=== PATIENT | female | born 1950 | race Caucasian/White ===

== ENCOUNTER 2016-11-20 11:36 | Emergency (ER) | payer MEDICARE ==
[2016-11-20 11:36] VITALS: BMI 25.9
[2016-11-20 11:41] VITALS: TEMP 98.3
--- NOTE | 2016-11-20 12:13 | C.PDOC ---
History Of Present Illness 66 yr old female with PMHx of Hyperlipidemia, presents to the ER with complaints of left sided chest pain for the past 2 days. Reports took 1 baby Aspirin today. Patient states initially it was intermittent but now it has been constant and today has been occasionally radiating down the left arm. Patient describes the pain as tightness sensation, associated with mild SOB. Patient denies fever, cough, nausea, vomiting, abdominal pain, headache, history of CAD , HTN, diabetes or smoking. Time Seen by Provider: 11/20/16 11:52 Chief Complaint (Nursing): Chest Pain History Per: Patient History/Exam Limitations: no limitations Onset/Duration Of Symptoms: Days (2 days) Current Symptoms Are (Timing): Still Present Quality: Tightness Associated Symptoms: Other (Mild SOB) Past Medical History Reviewed: Historical Data, Nursing Documentation, Vital Signs Vital Signs: Last Vital Signs Temp 98.3 F 11/20/16 14:31 Pulse 64 11/20/16 15:46 Resp 16 11/20/16 15:46 BP 119/61 11/20/16 15:46 Pulse Ox 100 11/20/16 16:14 - Medical History PMH: Diverticulitis, HTN, Hypercholesterolemia - [facility] Procedures COLOSTOMY NOS (08/27/14) ENDOSC LG BOWEL THROUGH STOMA (12/03/14) LAPAROSCOPY (08/27/14) LG BOWEL STOMA CLOSURE (01/04/15) OPEN AND OTHER SIGMOIDECTOMY (08/27/14) OTHER SKIN & SUBQ I D (01/01/15) PERITONEAL LAVAGE (08/27/14) SUPPLEMENT ABDOMINAL WALL WITH SYNTH SUB, OPEN APPROACH (11/30/15) Family History: States: No Known Family Hx - Social History Hx Tobacco Use: No Hx Alcohol Use: No Hx Substance Use: No - Immunization History Hx Tetanus Toxoid Vaccination: Yes Hx Influenza Vaccination: Yes Hx Pneumococcal Vaccination: No Review Of Systems Except As Marked, All Systems Reviewed And Found Negative. Constitutional: Negative for: Fever Cardiovascular: Positive for: Chest Pain (Left ) Respiratory: Positive for: Shortness of Breath (Mild) Gastrointestinal: Negative for: Nausea, Vomiting, Abdominal Pain Neurological: Negative for: Headache Physical Exam - Physical Exam Appears: Non-toxic, In Acute Distress (Mild pain ), Other ((+) Speaking in full sentences. ) Skin: Warm, Dry, No Rash Head: Atraumatic, Normacephalic Oral Mucosa: Moist Chest: Symmetrical, No Tenderness Cardiovascular: Rhythm Regular, No Murmur Respiratory: Normal Breath Sounds, No Rales, No Rhonchi, No Wheezing Gastrointestinal/Abdominal: Normal Exam, Soft, No Tenderness, No Guarding, No Rebound Extremity: Normal ROM, No Calf Tenderness, No Swelling Neurological/Psych: Oriented x3, Normal Speech, Normal Motor ED Course And Treatment - Laboratory Results Result Diagrams: 11/20/16 12:09 11/20/16 12:09 ECG: Interpreted By Me, Viewed By Me ECG Rhythm: Sinus Rhythm ECG Interpretation: Normal Rate From EC (BPM) O2 Sat by Pulse Oximetry: 100 (RA) Pulse Ox Interpretation: Normal - Radiology CXR: Interpreted by Me - CT Scan/US CT ABD/PELVIS Other Rad Studies (CT/US): Read By Radiologist, Radiology Report Reviewed CT/US Interpretation: Accession No. : [id number]. Patient Name / ID : BARBIE COWAN / [id number]. Exam Date : 11/20/2016 12:02:43 ( Approved ) . Study Comment : Sex / Age : F / 54Y. Creator : Lion Byers MD. Dictator : Lion Byers MD. Assistant Loan Processor : Patient Financial Counselor : Lion Byers MD. Approver2 : Report Date : 11/20/2016 12:52:10. My Comment : . CT abdomen and pelvis. History: Right flank pain. Comparison: CT scan dated 05/18/2014. Technique: Multiple contiguous axial images were performed through the abdomen and pelvis without intravenous contrast. Subsequently, sagittal and coronal reformatted images were obtained. This CT exam was performed using one or more of the following dose reduction techniques: Automated exposure control, adjustment of the mA and/or kV according to patient size, and/or use of iterative reconstruction technique. Findings: Scattered atelectasis within the visualized lung landrum. No pleural or pericardial effusion. Fatty infiltration of the liver. Prior cholecystectomy. Spleen is preserved. Adrenal glands are preserved. Pancreas is preserved. Small hiatal hernia. Right kidney: Mild atrophy. Again identified is a prominent upper right renal staghorn calculus measuring up to 2.2 x 1.5 x 2.7 centimeters. Mild fullness versus mild hydronephrosis of the right renal collecting system and ureter. At the level of the distal right ureter there is a questionable 1 millimeter punctate radiopaque focus which may represent a small calculus best seen on series 3, image 145. Left Kidney: No calculi or hydronephrosis. Urinary bladder is preserved. Heterogeneous uterus and bilateral adnexa. Evaluation of the lower abdominal bowel demonstrates relative underdistention of the colon. Appendix not well visualized on this noncontrast study. If there is concern for appendiceal pathology, correlation with a contrast-enhanced scan may be helpful. Few shotty periaortic and mesenteric lymph nodes. Degenerative changes in the spine with paravertebral osteophytes. Prominent posterior disc osteophyte complex at the L5-S1 level. Impression: Again identified is a prominent upper right renal staghorn calculus measuring up to 2.2 x 1.5 x 2.7 centimeters. Mild fullness versus mild hydronephrosis of the right renal collecting system and ureter. At the level of the distal right ureter there is a questionable 1 millimeter punctate radiopaque focus which may represent a small calculus best seen on series 3, image 145. Additional findings as above. Progress Note: PLAN: CXR, EKG, CBC, CMP, Troponin, Aspirin PO & Nitroglycerin SL. Disposition Counseled Patient/Family Regarding: Studies Performed, Diagnosis, Need For Followup, Rx Given - Disposition Referrals: [facility] [Outside] Mejia Patel MD [Medical Doctor] - Disposition: HOME/ ROUTINE Disposition Time: 18:10 Condition: STABLE Additional Instructions: SEGUIMIENTO CON CARDIOLOGA DENTRO DE 1 SEMANA, Y CON HUBBARD DOCTOR / CLNICA EN 1- 2 LAW DEVUELVA A LA VERA DE EMERGENCIA SI LOS SNTOMAS RESULTAN / EMPEORARAN Forms: General Discharge Instructions Print Language: SWEDISH - POA Present On Arrival: None - Clinical Impression Clinical Impression: Nonspecific chest pain - Scribe Statement The provider has reviewed the documentation as recorded by the Scribe Norma Pedro Provider Attestation: All medical record entries made by the Leeann were at my direction and personally dictated by me. I have reviewed the chart and agree that the record accurately reflects my personal performance of the history, physical exam, medical decision making, and the department course for this patient. I have also personally directed, reviewed, and agree with the discharge instructions and disposition.
[2016-11-20 12:16] LABS: BASO % 0.7 % (0.0-2.0); EOS # 0.1 K/uL (0.0-0.7); EOS % 1.5 % (0.0-4.0); HEMATOCRIT 42.6 % (34.0-47.0); LYMPH # 2.6 K/uL (1.0-4.3); LYMPH % 33.7 % (20.0-40.0); MEAN CELL VOLUME 92.1 fL (81.0-99.0); MEAN CORPUSCULAR HEMOGLOBIN 30.1 pg (27.0-31.0); MEAN CORPUSCULAR HGB CONC 32.7 g/dL (33.0-37.0); MEAN PLATELET VOLUME 8.9 fL (7.2-11.7); MONO # 0.6 K/uL (0.0-0.8); NRBC % 0.1 % (0.0-2.0); RED CELL DISTRIBUTION WIDTH 13.6 % (11.5-14.5); WHITE BLOOD COUNT 7.7 K/uL (4.8-10.8)
[2016-11-20 12:26] LABS: CHLORIDE 104 mmol/L (98-107); POTASSIUM 4.1 mmol/L (3.6-5.2); SODIUM 141 mmol/L (132-148)
[2016-11-20 12:28] LABS: ALB/GLOB RATIO 1.6 (1.0-2.1); ALKALINE PHOSPHATASE 126 U/L (38-126); AST/SGOT 41 U/L (14-36); CARBON DIOXIDE 25 mmol/L (22-30); GFR AFRICAN-AMERICAN > 60; TOTAL PROTEIN 7.8 g/dL (6.3-8.3)
[2016-11-20 12:29] LABS: ALT/SGPT 35 U/L (9-52); BLOOD UREA NITROGEN 11 mg/dL (7-17); GLUCOSE,RANDOM 91 mg/dL (65-105)
--- NOTE | 2016-11-20 14:31 | RAD ---
PROCEDURE: CHEST RADIOGRAPH, 1 VIEW HISTORY: Chest pain COMPARISON: 05/13/2015 FINDINGS: LUNGS: Mild venous congestion with mild patchy increased markings at the bases. Upper lobe granulomatous changes. PLEURA: As above. CARDIOVASCULAR: Mild cardiomegaly. OSSEOUS STRUCTURES: Degenerative changes in the spine and shoulders. VISUALIZED UPPER ABDOMEN: Normal. OTHER FINDINGS: None. IMPRESSION: Mild venous congestion with mild patchy increased markings at the bases. Upper lobe granulomatous changes.
[2016-11-20 15:46] VITALS: BP 119/61; PULSE 64; RESP 16
[2016-11-20 16:11] VITALS: O2SAT 100
--- NOTE | 2016-11-21 18:30 | CARD ---
APPROVED REPORT EKG Measurement Heart [id number] <Conclusion> Normal sinus rhythm Normal ECG
== END 2016-11-20 16:23 | disposition home or self-care (01) ==
LOC: C.ER 11:36
DX: R07.89 Other chest pain (principal)